=== PATIENT | female | born 2000 | race Caucasian/White ===

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

== ENCOUNTER 2022-12-15 15:21 | Emergency (ER) | payer MEDICAID ==
[~2022-12-15] VITALS: Ht 167.6 cm; Wt 59.0 kg
[2022-12-15 16:03] VITALS: BP 122/64; PULSE 77; RESP 18; TEMP 97.9; O2SAT 98
[2022-12-15 16:24] VITALS: O2SAT 100
[2022-12-15 16:28] VITALS: BP 122/66; PULSE 77; RESP 18; TEMP 97.9; O2SAT 98
== END 2022-12-15 16:30 | disposition home or self-care (01) ==
LOC: MED 15:21
DX: S09.90XA Unspecified injury of head, initial encounter (principal); X58.XXXA Exposure to other specified factors, initial encounter; Y93.89 Activity, other specified; Y92.89 Other specified places as the place of occurrence of the external cause; Y99.8 Other external cause status
CPT/HCPCS: 81025; 99282

== ENCOUNTER 2023-04-23 22:08 | Emergency (ER) | payer MEDICAID ==
[~2023-04-23] VITALS: Ht 167.6 cm; Wt 59.0 kg
[2023-04-23 22:39] VITALS: BP 112/76; PULSE 78; RESP 17; TEMP 98.6; O2SAT 100
[2023-04-23 23:53] LABS: APPEARANCE,URINE CLEAR (CLEAR); BILIRUBIN,URINE NEGATIVE (NEGATIVE); BLOOD, URINE NEGATIVE (NEGATIVE); COLOR,URINE YELLOW (YELLOW); LEUKOCYTE ESTERASE ,URINE 1+ (NEGATIVE); NITRITE, URINE NEGATIVE (NEGATIVE); PH,URINE 7.5 (5.0-9.0); PROTEIN,URINE NEGATIVE (NEGATIVE); UGLUCOSE NEGATIVE (NEGATIVE); UROBILINOGEN,URINE 0.2 EU/dL (0.2 - 1)
[2023-04-24] LABS: BACTERIA,URINE 10-30 (MOD) /HPF (None Seen); MUCUS,URINE 1+ /LPF (None Seen); RBC,URINE 0-5 /HPF (0-5); SQUAMOUS EPITHELIAL CELL,UR 4-10 (MOD) /LPF (0-3 (FEW))
[2023-04-24] MEDS ORDERED: CEPH-588 PO (01:21)
[2023-04-24] MEDS ORDERED: IBUP-2213 PO (01:21)
[2023-04-24] MEDS ORDERED: ACET-8001 PO (01:21)
[2023-04-24 01:25] VITALS: BP 119/80; PULSE 80; RESP 17; TEMP 98.6; O2SAT 100
== END 2023-04-24 01:25 | disposition home or self-care (01) ==
LOC: MED 22:08
DX: G44.209 Tension-type headache, unspecified, not intractable (principal); N39.0 Urinary tract infection, site not specified; Z79.899 Other long term (current) drug therapy
CPT/HCPCS: 81001; 81025; 87086; 99283

== ENCOUNTER 2023-10-07 21:06 | Emergency (ER) | payer MEDICAID ==
[~2023-10-07] VITALS: Ht 167.6 cm; Wt 52.6 kg
[~2023-10-07 21:06] MED LIST: ACET-8001 PO; CEPH-588 PO; IBUP-2213 PO
[2023-10-07 21:40] VITALS: BP 96/75; PULSE 82; RESP 18; TEMP 98; O2SAT 99
[2023-10-08 00:28] LABS: APPEARANCE,URINE CLEAR (CLEAR); BILIRUBIN,URINE NEGATIVE (NEGATIVE); BLOOD, URINE TRACE-I (NEGATIVE); COLOR,URINE YELLOW (YELLOW); LEUKOCYTE ESTERASE ,URINE NEGATIVE (NEGATIVE); NITRITE, URINE NEGATIVE (NEGATIVE); PH,URINE 7.5 (5.0-9.0); PROTEIN,URINE NEGATIVE (NEGATIVE); UGLUCOSE NEGATIVE (NEGATIVE); UROBILINOGEN,URINE 0.2 EU/dL (0.2 - 1)
[2023-10-08 00:46] LABS: RBC,URINE 0-5 /HPF (0-5); WBC,URINE 0-5 /HPF (0-5)
[2023-10-08 00:47] LABS: BACTERIA,URINE >30 (MANY) /HPF (None Seen); MUCUS,URINE 1+ /LPF (None Seen); SQUAMOUS EPITHELIAL CELL,UR 0-3 (FEW) /LPF (0-3 (FEW))
[2023-10-08] MEDS ORDERED: NITR100C7 PO (01:28)
[2023-10-08] MEDS ORDERED: IBUP-1842 PO (01:28)
[2023-10-08 01:40] VITALS: BP 120/78; PULSE 71; RESP 18; TEMP 98.2; O2SAT 99
== END 2023-10-08 01:40 | disposition home or self-care (01) ==
LOC: MED 21:06
DX: N93.9 Abnormal uterine and vaginal bleeding, unspecified (principal); N39.0 Urinary tract infection, site not specified; Z79.899 Other long term (current) drug therapy
CPT/HCPCS: 81001; 81025; 87086; 99284